=== PATIENT | female | born 1945 | race Caucasian/White ===

== ENCOUNTER → 2016-05-17 06:35 | Day surgery (SDC) | payer MEDICARE, BC ==
--- NOTE | 2016-05-10 20:00 | HP ---
HISTORY AND PHYSICAL: DATE OF ADMISSION: 05/17/16 [facility] CHIEF COMPLAINT: Blurring of vision/cataracts. HISTORY OF PRESENT ILLNESS: This 71-year-old white female has been diagnosed by Dr. Sepulveda with bilateral cataracts. She is scheduled for cataract extraction of the right eye under local anesthesia with monitored anesthesia care on 05/17/16. Her left cataract will be done on 06/07/16. PAST MEDICAL HISTORY: The patient is under the care of Dr. River Dc. She has a history of hypertension and hyperlipidemia, and mild reactive airways disease. PAST SURGICAL HISTORY: Includes tonsillectomy and appendectomy as a child. CURRENT MEDICATIONS: 1. Valsartan and HCTZ 320/12.5 daily. 2. Potassium chloride 10 mEq 2 tablets daily. 3. Atorvastatin 20 mg daily. 4. Proventil HFA inhaler 2 sprays four times a day p.r.n. ALLERGIES: TETRACYCLINE has caused a rash. FAMILY HISTORY: Mother hypertension, hypothyroid, rheumatoid arthritis, and a CVA. Father was a smoker, of lung cancer. Sister smoker, lung cancer. Brother, [place], had coronary artery bypass graft. SOCIAL HISTORY: The patient is a . She is a retired nurse. She has never used tobacco and does not drink any alcohol. REVIEW OF SYSTEMS: She has a chronic a.m. cough. Otherwise, review of systems is negative to detailed questioning. Specifically, she denies any dyspnea, chest pain, palpitations, or ankle edema symptoms. PHYSICAL EXAMINATION GENERAL: This 71-year-old white female is alert, pleasant, and cooperative. Quite talkative. VITAL SIGNS: Height 5 feet 1 inches, weight stable at 137. Blood pressure 124/ 70, pulse 76. HEENT: Eyes: Not examined. Ears: Normal. Mouth: Tongue in the midline. Teeth in good repair. Pharynx is clear. Ears: Bilateral cerumen. NECK: No adenopathy or tenderness. Thyroid benign. LUNGS: Clear. No coughing or wheezing with deep breathing or forced expiration. HEART: Rhythm is regular. Apical pulse 76 beats per minute, no murmurs, blood pressure 124/70. EKG shows normal sinus rhythm, within normal limits. ABDOMEN: Mildly obese. Active bowel sounds. Abdomen is soft, nontender. No obvious masses or organomegaly. BACK: Normal curvature. No tenderness noted in spine or CVA areas. EXTREMITIES: The patient ambulates independently. No assisting aids. No edema. Skin in good condition distally. She does have some decreased sensation of her toes on the right foot due to a previous crush injury and she is cold intolerant on the right foot. SKIN: Warm, dry, pale pink. No worrisome lesions noted. IMPRESSION: The patient is medically stable and cleared for her upcoming cataract surgery with Dr. Vincenzo Sepulveda at the [facility]. NEWTON MARY NP CC: Dr. River Dc; Dr. Vincenzo Sepulveda; [facility] * [id number]/[facility] #: [id number] MTDD
[~2016-05-17 06:35] MED LIST: Acetaminophen TAB* 325 MG PO PRN; Buffered Lidocaine 1% SYR 3ML* 3 ML/SYR SYRINGE INTRADERM ONE; Buffered Lidocaine 1% SYR 3ML* 3 ML/SYR SYRINGE ONE; Cyclopentolate 1% OPTH.SOL* 2 ML BTL ONE; Flurbiprofen 0.03% OPTH.SOL* 2.5 ML BTL ONE; Lidocaine 1% MPF* 2 ML VIAL ONE; Lidocaine 2% EPI 1:200000 MPF* 20 ML VIAL ONE; Midazolam* 1 MG/ML 5 ML VIAL (5 MG) ONE; Neomycin/Polymy/Dex OPTH.SUSP* MAXITROL 0.1% 5 ML ONE; Phenylephrine 2.5% OPTH.SOL* 2 ML BTL ONE; Povidone Iodine 5% OPTH* 30 ML BTL ONE; Proparacaine 0.5% OPHTH.SOL* 15 ML BTL ONE; Trypan Blue 0.06% SOL* 0.5 ML BTL ONE; acetaZOLAMIDE TAB* 250 MG ONE; fentaNYL* 50 MCG/ML 2 ML VIAL (100 MCG VIAL) ONE
[2016-05-17 08:22] VITALS: BP 120/68
--- NOTE | 2016-05-17 21:42 | OP ---
DATE OF OPERATION: 05/17/16 - [facility] DATE OF : 43 SURGEON: Vincenzo Sepulveda M.D. PREOPERATIVE DIAGNOSIS: Cataract, right eye. POSTOPERATIVE DIAGNOSIS: Cataract, right eye. OPERATIVE PROCEDURE: Phacoemulsification, right eye, with IOL. DESCRIPTION OF PROCEDURE: The patient was brought to the operating room after being given 1/2% Alcaine with epinephrine drops in the preoperative area. The eye was prepped and draped in the usual sterile fashion. Sterile drape and eyelid speculum were placed. Again, topical 1/2% Alcaine with epinephrine was given. A paracentesis incision was made at the 9 o'clock position with the No.75 blade. Clear cornea incision 2.2 x 2.2-mm was created at the 12 o'clock position starting at the anterior limbus using the 2.2-mm keratome. The anterior chamber was irrigated with 0.4 mL of 1% non-preservative intracameral lidocaine and filled with DisCoVisc. A capsulorrhexis was completed using the cystotome and the Utrata forceps. Hydrodissection was performed with balanced salt solution. The lens nucleus was removed with the Phacoemulsification handpiece without incident. Cortex was removed with the irrigation-aspiration handpiece. The capsular bag was re-inflated using DisCoVisc and an [id number] 20.5 implant was inserted with the shooter. The irrigation-aspiration handpiece was used to remove all residual DisCoVisc. The eye was refilled with balanced salt solution and the wound checked and found to be watertight. Topical Maxitrol drops were given. There was white cataract, so VisionBlue was used to stain the anterior capsule prior to capsulorrhexis. Indication for complex cataract surgery: White cataract requiring VisionBlue stain. [id number]/[facility] #: [id number] [facility]
== END | disposition home or self-care (01) ==
LOC: OREAST 06:35
PROVIDERS: ATTEND Specialist
DX: H25.811 Combined forms of age-related cataract, right eye (principal); I10 Essential (primary) hypertension; J45.909 Unspecified asthma, uncomplicated
CPT/HCPCS: A9270-GY; J2250; J3010; V2632

== ENCOUNTER 2016-06-07 09:13 | Day surgery (SDC) | payer MEDICARE, BC ==
[~2016-06-07 09:13] MED LIST changes: -Buffered Lidocaine 1% SYR 3ML* 3 ML/SYR SYRINGE ONE; -Cyclopentolate 1% OPTH.SOL* 2 ML BTL ONE; -Flurbiprofen 0.03% OPTH.SOL* 2.5 ML BTL ONE; -Lidocaine 1% MPF* 2 ML VIAL ONE; -Lidocaine 2% EPI 1:200000 MPF* 20 ML VIAL ONE; -Midazolam* 1 MG/ML 5 ML VIAL (5 MG) ONE; -Neomycin/Polymy/Dex OPTH.SUSP* MAXITROL 0.1% 5 ML ONE; -Phenylephrine 2.5% OPTH.SOL* 2 ML BTL ONE; -Povidone Iodine 5% OPTH* 30 ML BTL ONE; -Proparacaine 0.5% OPHTH.SOL* 15 ML BTL ONE; -Trypan Blue 0.06% SOL* 0.5 ML BTL ONE; -acetaZOLAMIDE TAB* 250 MG ONE; -fentaNYL* 50 MCG/ML 2 ML VIAL (100 MCG VIAL) ONE
[2016-06-07] MEDS ORDERED: Cyclopentolate 1% OPTH.SOL* 2 ML BTL ONE (09:32)
[2016-06-07] MEDS ORDERED: Neomycin/Polymy/Dex OPTH.SUSP* MAXITROL 0.1% 5 ML ONE (09:32)
[2016-06-07] MEDS ORDERED: acetaZOLAMIDE TAB* 250 MG ONE (09:32)
[2016-06-07] MEDS ORDERED: Lidocaine 2% EPI 1:200000 MPF* 20 ML VIAL ONE (09:32)
[2016-06-07] MEDS ORDERED: Phenylephrine 2.5% OPTH.SOL* 2 ML BTL ONE (09:32)
[2016-06-07] MEDS ORDERED: Povidone Iodine 5% OPTH* 30 ML BTL ONE (09:32)
[2016-06-07] MEDS ORDERED: Lidocaine 1% MPF* 2 ML VIAL ONE (09:32)
[2016-06-07] MEDS ORDERED: Proparacaine 0.5% OPHTH.SOL* 15 ML BTL ONE (09:32)
[2016-06-07] MEDS ORDERED: Flurbiprofen 0.03% OPTH.SOL* 2.5 ML BTL ONE (09:32)
[2016-06-07] MEDS ORDERED: Midazolam* 1 MG/ML 2 ML VIAL (2 MG) ONE (12:02)
[2016-06-07] MEDS ORDERED: fentaNYL* 50 MCG/ML 2 ML VIAL (100 MCG VIAL) ONE (12:36)
[2016-06-07 13:20] VITALS: BP 117/68
--- NOTE | 2016-06-08 04:14 | OP ---
DATE OF OPERATION: 06/07/16 - [facility] DATE OF : 43 SURGEON: Vincenzo Sepulveda M.D. PREOPERATIVE DIAGNOSIS: Cataract, left eye. POSTOPERATIVE DIAGNOSIS: Cataract, left eye. OPERATIVE PROCEDURE: Phacoemulsification, left eye with IOL. DESCRIPTION OF PROCEDURE: The patient was brought to the operating room after being given 1/2% Alcaine with epinephrine drops in the preoperative area. The eye was prepped and draped in the usual sterile fashion. Sterile drape and eyelid speculum were placed. Again, topical 1/2% Alcaine with epinephrine was given. A paracentesis incision was made at the 3 o'clock position with the No.75 blade. Clear cornea incision 2.2 x 2.2-mm was created at the 6 o'clock position starting at the anterior limbus using the 2.2-mm keratome. The anterior chamber was irrigated with 0.4 mL of 1% non-preservative intracameral lidocaine and filled with DisCoVisc. A capsulorrhexis was completed using the cystotome and the Utrata forceps. Hydrodissection was performed with balanced salt solution. The lens nucleus was removed with the Phacoemulsification handpiece without incident. Cortex was removed with the irrigation-aspiration handpiece. The capsular bag was re-inflated using DisCoVisc and an [id number] implant was inserted with the shooter. The irrigation-aspiration handpiece was used to remove all residual DisCoVisc. The eye was refilled with balanced salt solution and the wound checked and found to be watertight. Topical Maxitrol drops were given. [id number]/[facility] #: [id number] MTDD
== END 2016-06-07 13:12 | disposition home or self-care (01) ==
LOC: OREAST 09:13
PROVIDERS: ATTEND Specialist
DX: H25.812 Combined forms of age-related cataract, left eye (principal); I10 Essential (primary) hypertension; J45.909 Unspecified asthma, uncomplicated
CPT/HCPCS: A9270-GY; J2250; J3010; V2632

== ENCOUNTER 2016-12-23 11:21 | Emergency (ER) | payer MEDICARE, BC ==
--- NOTE | 2016-12-23 12:35 | UC ---
Respiratory Complaint HPI - HPI Summary HPI Summary: 71 y/o male presents to the urgent care c/o persistent productive cough with SOB and wheezing. She has been using her Albuterol inhaler more often for the past week. She reports this year she had an asthma exacerbation in August and November. She finish taking the Prednisone PO in mid November. Her symptoms improved for a few days, but now has return for the past week. she feels she needs an antibiotic since she is producing a green sputum. Her symptoms are also associated with postnasal drip. Pt denies Fever, chest pain, abdominal pain, N/V/D, sore throat, CASTANEDA. - History of Current Complaint Chief Complaint: UCAsthma Stated Complaint: RESPIRATORY Time Seen by Provider: 12/23/16 12:32 Hx Obtained From: Patient Hx Last Menstrual Period: Menopausal ?: No Onset/Duration: Gradual Onset, Lasting Weeks - 1 week Severity Initially: Mild Severity Currently: Moderate Pain Intensity: 0 Pain Scale Used: 0-10 Numeric Character: Cough: Productive - green sputum Alleviating Factors: Bronchodilator - using more frequently Associated Signs And Symptoms: Positive: Dyspnea, Wheezing, Nasal Congestion. Negative: Fever Related History: Seasonal Allergies - Risk Factors Pulmonary Embolism Risk Factors: Negative Cardiac Risk Factors: Negative Pseudomonas Risk Factors: Negative Tuberculosis Risk Factors: Negative - Allergies/Home Medications Allergies/Adverse Reactions: Allergies Allergy/AdvReac Type Severity Reaction Status Date / Time Tetracycline Allergy Intermediate Rash Verified 12/23/16 11:32 Home Medications: Home Medications Flaxseed (Linseed) [Flaxseed Oil 1200 mg] 1 cap PO SEE INSTRUCTIONS 12/23/16 [ History Confirmed 12/23/16] PMH/Surg Hx/FS Hx/Imm Hx Previously Healthy: Yes Endocrine History: Dyslipidemia Cardiovascular History: Hypertension Respiratory History: Asthma - Surgical History Surgical History: Yes Surgery Procedure, Year, and Place: APPENDECTOMY,CARPAL TUNNEL - Family History Known Family History: Positive: Cardiac Disease, Hypertension - Social History Occupation: Retired Lives: With Family Alcohol Use: None Substance Use Type: None Smoking Status (MU): Never Smoked Tobacco Review of Systems Constitutional: Negative Skin: Negative Eyes: Negative ENT: Nasal Discharge Respiratory: Shortness Of Breath, Cough - productive with green sputum Cardiovascular: Negative Gastrointestinal: Negative Genitourinary: Negative Motor: Negative Neurovascular: Negative Musculoskeletal: Negative Neurological: Negative Psychological: Negative Is Patient Immunocompromised?: No All Other Systems Reviewed And Are Negative: Yes Physical Exam Triage Information Reviewed: Yes Appearance: Well-Appearing, No Pain Distress, Well-Nourished Vital Signs: Initial Vital Signs Temp 98.0 F 12/23/16 11:27 Pulse 89 12/23/16 11:27 Resp 20 12/23/16 11:27 BP 150/87 12/23/16 11:27 Pulse Ox 98 12/23/16 11:27 Vital Signs Reviewed: Yes Eye Exam: Normal Eyes: Positive: Conjunctiva Clear - PERRLA, EOMI ENT Exam: Normal ENT: Positive: Normal ENT inspection, Hearing grossly normal, Pharynx normal, Nasal congestion - mild edematous nasal mucosa, TMs normal. Negative: Tonsillar swelling, Tonsillar exudate Neck exam: Normal Neck: Positive: Supple, Nontender, No Lymphadenopathy Respiratory Exam: Normal Respiratory: Positive: Chest non-tender, No respiratory distress, No accessory muscle use, Wheezing - B/L Diffuse wheezing with mild crackles in the left posterior lung Cardiovascular Exam: Normal Cardiovascular: Positive: RRR, No Murmur, Pulses Normal Abdominal Exam: Normal Abdomen Description: Positive: Nontender, No Organomegaly, Soft. Negative: CVA Tenderness (R), CVA Tenderness (L) Bowel Sounds: Positive: Present Musculoskeletal Exam: Normal Musculoskeletal: Positive: Strength Intact, ROM Intact, No Edema Neurological Exam: Normal Psychological Exam: Normal Skin Exam: Normal UC Diagnostic Evaluation - Laboratory O2 Sat by Pulse Oximetry: 98 Respiratory Course/Dx - Course Course Of Treatment: 71 y/o male presents to the urgent care c/o persistent productive cough with SOB and wheezing. She has been using her Albuterol inhaler more often for the past week. She reports this year she had an asthma exacerbation in August and November. She finish taking the Prednisone PO in mid November. Her symptoms improved for a few days, but now has return for the past week. she feels she needs an antibiotic since she is producing a green sputum. Her symptoms are also associated with postnasal drip. Pt denies Fever, chest pain, abdominal pain, N/V/D, sore throat, CASTANEDA. Prednisone 60mg Po ordered with Duo neb treatment. Pt tolerated well medications and Lungs wheezing improved. Pt Rx Z-kim PO and Prednisone PO taper dose. Tessalon tabs PO to alleviate cough. Advised to continue with albuterol inhaler and f/u with her Family Resource Management Specialist Dr Zuniga for further management in her Asthma. Pt's BP elevated today. Pt with PMHX of HTN took medication this morning. Pt advised to derease magui in her diet and monitor BP at home and if it continues to be elevated to f/ u with her PCP for further management. Pt understood and agreed with plan of care. PT Left the clinic ambulating A&OX3 - Differential Dx/Diagnosis Differential Diagnosis/HQI/PQRI: Asthma, Bronchitis, Exacerbation Of COPD, Laryngitis, Lower Resp Infection, Sinusitis, Other - sinusitis, pharyngitis, pneumonia Provider Diagnoses: 1- Acute Asthma exacerbation. 2-Uncontrolled HTN Discharge - Discharge Plan Condition: Stable Disposition: HOME Prescriptions: Azithromycin TAB* [Zithromax TAB (Z-KIM) 250 mg #6 tabs] 2 tab PO .TODAY, THEN 1 DAILY #1 kim Benzonatate CAP* [Tessalon 100 MG CAP*] 100 mg PO TID #15 cap predniSONE TAB* [Deltasone TAB*] 20 mg PO DAILY #8 tab Patient Education Materials: Asthma (ED), Acute Bronchitis (ED) Referrals: Lucas Claudio MD [Primary Care Provider] - 1 Week Katia Zuniga MD [Medical Doctor] - 1 Week Additional Instructions: 1-Please take full course of antibiotic to avoid resistance. 2-Take Tessalon PO tabs and Prednisone PO as directed and use the albuterol inhaler q4-6hrs to alleviate symptoms. Increase fluid intake, rest and eat well. 3- If symptoms do not improve or worsen or your develop SOB with fever and severe wheezing please go immediately to the ER further evaluation and treatment. 4- F/u with your Family Resource Management Specialist Dr Zuniga in 1 week for further management on your Asthma 4- Your BP today is elevated, please decrease salt in your diet, monitor your BP , if it continues to be elevated please f/y with your PCP for further management.
[2016-12-23] MEDS ORDERED: predniSONE TAB* 20 MG PO ONE (12:53)
[2016-12-23] MEDS ORDERED: Albuterol/Ipratropium NEB.SOL* Albuterol 2.5 MG/Ipratropium 0.5 MG 3 ML INH ONE (12:54)
[2016-12-23 13:23] VITALS: BP 147/84
== END 2016-12-23 14:13 | disposition home or self-care (01) ==
LOC: UCEAST 11:21
DX: J45.901 Unspecified asthma with (acute) exacerbation (principal); I10 Essential (primary) hypertension; E78.5 Hyperlipidemia, unspecified
CPT/HCPCS: 99212; A9270-GY; G0463; J7512